=== PATIENT | female | born 1970 | race Caucasian/White ===

== ENCOUNTER 2025-05-29 12:17 | Day surgery (SDC) | payer BC, SELFPAY ==
[2025-05-29] VITALS (7 sets, daily range): BP systolic 127–148; BP diastolic 78–100; PULSE 64–82; RESP 16; TEMP 36.2–36.9; O2SAT 94–100; BMI 37.1
[2025-05-29 12:42] LABS: Ur HCG Qualitative* Negative (Negative)
[2025-05-29] MEDS: SODIUM CHLORIDE 0.9 % (FLUSH) 10 ML SYRINGE IVF (13:08)
[2025-05-29] MEDS: LACTATED RINGERS 1000 ML 1,000 ML 100 ML IV (13:08)
[2025-05-29] MEDS: BUPIVACAINE 0.25% 30 ML INJECTION (13:24)
--- NOTE | 2025-05-29 13:35 | P.ANES_ITS ---
Anesthesia Charges Start Date/Time Anesthesia Start Date: 05/29/25 Anesthesia Start Time: 13:14 Stop Date/Time Anesthesia Stop Date: 05/29/25 Anesthesia Stop Time: 15:14 Coding CPT Codes CPT Codes: ANESTH LOWER LEG BONE SURG - 32480 ([id number]) P3 - PATIENT W/SEVERE SYS DISEASE, QK - CLINICAL LIAISON 2-4 CNCRNT ANES PROC, QX - SENIOR RADIATION PROTECTION TECHNICIAN SVC W/ MD MED DIRECTION
--- NOTE | 2025-05-29 13:35 | W.ANESCHARGE ---
Anesthesia Charges Start Date/Time Anesthesia Start Date: 05/29/25 Anesthesia Start Time: 13:14 Stop Date/Time Anesthesia Stop Date: 05/29/25 Anesthesia Stop Time: 15:14 Coding CPT Codes CPT Codes: ANESTH LOWER LEG BONE SURG - 86104 ([id number]) P3 - PATIENT W/SEVERE SYS DISEASE, QK - SUPERVISOR FURNACE ROOM 2-4 CNCRNT ANES PROC, QX - ENGRAVING PRESS OPERATOR SVC W/ MD MED DIRECTION
--- NOTE | 2025-05-29 13:46 | P.ANES_ITS ---
Anesthesia Charges Start Date/Time Anesthesia Start Date: 05/29/25 Anesthesia Start Time: 13:14 Stop Date/Time Anesthesia Stop Date: 05/29/25 Anesthesia Stop Time: 15:14 Coding CPT Codes CPT Codes: ANESTH LOWER LEG BONE SURG - 55568 ([id number]) P3 - PATIENT W/SEVERE SYS DISEASE, QK - DIRECTOR OF ASSESSMENT 2-4 CNCRNT ANES PROC, QX - SENIOR NET DEVELOPER ARCHITECT SVC W/ MD MED DIRECTION
--- NOTE | 2025-05-29 13:46 | W.ANESCHARGE ---
Anesthesia Charges Start Date/Time Anesthesia Start Date: 05/29/25 Anesthesia Start Time: 13:14 Stop Date/Time Anesthesia Stop Date: 05/29/25 Anesthesia Stop Time: 15:14 Coding CPT Codes CPT Codes: ANESTH LOWER LEG BONE SURG - 50622 ([id number]) P3 - PATIENT W/SEVERE SYS DISEASE, QK - MACHINE GUIDE BASE WINDER 2-4 CNCRNT ANES PROC, QX - JAVA SWING DEVELOPER SVC W/ MD MED DIRECTION
--- NOTE | 2025-05-29 13:54 | SUR.OPER ---
PATIENT QUESTIONS ANSWERED SATISFACTORILY PREOPERATIVELY.? PATIENT BROUGHT TO OR #1 PER CART.? Patient positioned supine on OR #1 bed.? The perioperative?team supported arms bilaterally on arm boards.? Final approval of positioning by surgeon.
--- NOTE | 2025-05-29 15:14 | W.PM.PODPROC ---
Date of Procedure: 05/29/25 Surgeon: Edgardo Segura DPM Pre-op Diagnosis: 1. Hammertoe 2nd digit left 2. Hammertoe 3rd digit left 3. Metatarsalgia left Post-op Diagnosis: 1. Hammertoe 2nd digit left 2. Hammertoe 3rd digit left 3. Metatarsalgia left Type of Procedure: 1. Leslie osteotomy 2nd metatarsal left 2. Leslie osteotomy 3rd metatarsal left 3. Hammertoe 2nd digit left 4. Hammertoe 3rd digit left Indications: Patient has had ongoing hammertoe and metatarsal pain and elected to proceed with surgical care. I reviewed the procedure, recovery, and expected locations and potential complications. These include but are not limited to: Poor wound healing, infection, under correction, correction, nonunion, hardware irritation, floating toe, nerve injury, deep venous thrombosis, pulmonary embolism possible . She understands risks written consent was obtained. All questions answered. Site marked. Procedure Description: Patient brought the operating room placed supine position on operating table that time IV sedation was initiated local anesthetic was injected in the left foot. She was prepped and draped in sterile fashion. Standard time-out protocol followed. Left foot was exsanguinated and the tourniquet inflated. Linear incision was made over the proximal interphalangeal joint the 2nd digit and extended proximal over the metatarsophalangeal joint with slight S curve medially. Incisions carried down through skin subcutaneous tissues. Transverse incisions then made through the extensor tendons at the level of the MPJ. Dorsal joint capsule was incised as well as the medial and lateral aspects of the joint capsule. Sagittal saw was used to then create a Leslie osteotomy the capital fragment was transposed proximal and lateral. It was then fixated with a 2.0 mm twist off screw x1. Dorsal overhang was removed with a rongeur. Transverse incision was then made through the extensor tendon and joint capsule at the level of the PIPJ. The medial and lateral collateral ligaments released. Oscillating saw was used to resect the head of the proximal phalanx and the base of the middle phalanx. We attempted to place a retro fuse screw but the proximal phalanx was too narrow and a small fracture occurred in the dorsal distal aspect of the proximal phalanx. 0.045 smooth K-wire was introduced medially into the base of the middle phalanx driven out the tip of the toe. 0.054 smooth K-wire x2 with and placed in the base of the middle phalanx driven out the tip of the toe. Fusion site was held together in all 3 K-wires were then retrogradely drilled back into the proximal phalanx. C-arm confirmed excellent position. All pins were stable. K-wires were bent cut and capped. Redundant extensor tendon was excised and the tendon repaired with 4-0 Vicryl at the PIPJ. Wounds were thoroughly irrigated with sterile saline. Using FiberWire the plantar medial joint capsule was then tightened down to bring the toe into more rectus position. C-arm confirmed good correction. The dorsal joint capsule overlying metatarsal head was repaired with 4-0 Vicryl. Subcutaneous tissues reapproximated 4-0 Monocryl skin closed with 4-0 Prolene Linear incision was made over the proximal interphalangeal joint the 3rd digit and extended proximal over the metatarsophalangeal joint with slight S curve laterally. Incisions carried down through skin subcutaneous tissues. Transverse incisions then made through the extensor tendons at the level of the MPJ. Dorsal joint capsule was incised as well as the medial and lateral aspects of the joint capsule. Sagittal saw was used to then create a Leslie osteotomy the capital fragment was transposed proximal and lateral. It was then fixated with a 2.0 mm twist off screw x1. Dorsal overhang was removed with a rongeur. Transverse incision was then made through the extensor tendon and joint capsule at the level of the 3rd PIPJ. The medial and lateral collateral ligaments released. Oscillating saw was used to resect the head of the proximal phalanx and the base of the middle phalanx. 0.045 smooth K-wire was introduced into the base of the middle phalanx driven out the tip of the toe. Fusion site was held together and K-wire was then retrogradely drilled back into the proximal phalanx. C-arm confirmed excellent position. K-wire was bent cut and capped. Redundant extensor tendon was excised and the tendon repaired with 4-0 Vicryl at the PIPJ. Wounds were thoroughly irrigated with sterile saline. Using FiberWire the plantar medial joint capsule was then tightened down to bring the toe into more rectus position. C-arm confirmed good correction. Blunt dissection was carried over to the 4th toe EDL and EDB slips which were then released with a scalpel improving the position of the 4th toe. The dorsal joint capsule overlying metatarsal head was repaired with 4-0 Vicryl. Subcutaneous tissues reapproximated 4-0 Monocryl skin closed with 4-0 Prolene Anesthesia: MAC and local Hemostasis: ankle Estimated blood loss (mL): 2 Provider Operated C-arm: Fluoroscopy was run by Edgardo Segura DPM for correction of hammertoes left foot. Total number of images was 16. Total fluoro time was 00:00:10. Implants: 2.0 mm distal screw x2, 0.054 K-wire x2, 0.045 smooth K-wire x2 Specimens: none sent Disposition: same day
[2025-05-29] MEDS: OxyCODONE/APAP 5-325 TABLET PO (16:30)
== END 2025-05-29 16:37 | disposition home or self-care (01) ==
LOC: OR 12:23
PROVIDERS: Anesthesiology; PCP Family Medicine; Visit Provider Podiatrist
PROC: (CPT 28285; principal; 2025-05-29 13:45)
DX: M20.42 Other hammer toe(s) (acquired), left foot (principal); M77.42 Metatarsalgia, left foot
CPT/HCPCS: 28285 ×2; 28308 ×2; 01480; 73620; 76000; 81025; A9270; C1713; J0665; J0690; J1100; J2405; J2704; J3490; J7120